=== PATIENT | male | born 1960 | race Caucasian/White ===

== ENCOUNTER 2023-02-08 09:04 | Outpatient (CLI) | payer BC | END 2023-02-08 09:05 | disposition home or self-care (01) | LOC: BICRAD 09:04 | PROVIDERS: ATTEND Nurse Practitioner Family | DX: R29.898 Other symptoms and signs involving the musculoskeletal system (principal); M47.812 Spondylosis without myelopathy or radiculopathy, cervical region | CPT/HCPCS: 72050 ==

== ENCOUNTER 2023-05-17 08:02 | Outpatient (CLI) | payer MEDICARE | END 2023-05-17 08:03 | disposition home or self-care (01) | LOC: MRI 08:02 | PROVIDERS: ATTEND Neurological Surgery | DX: M47.22 Other spondylosis with radiculopathy, cervical region (principal); M51.36 Other intervertebral disc degeneration, lumbar region; M47.816 Spondylosis without myelopathy or radiculopathy, lumbar region; M54.50 Low back pain, unspecified | CPT/HCPCS: 72141; 72148 ==

== ENCOUNTER 2023-07-03 09:18 | Outpatient (CLI) | payer MEDICARE | END 2023-07-03 09:19 | disposition home or self-care (01) | LOC: BICULT 09:18 | PROVIDERS: ATTEND Nurse Practitioner Family | DX: E80.7 Disorder of bilirubin metabolism, unspecified (principal) | CPT/HCPCS: 76705 ==